=== PATIENT | male | born 2005 | race Caucasian/White ===

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

== ENCOUNTER 2023-05-30 00:02 | Emergency (ER) | payer OTHER, SELFPAY ==
--- NOTE | ~2023-05-30 | XR_ITS ---
EXAMINATION: XR knee LT 3V DATE: 05/30/2023 00:40 INDICATION: Left knee pain. TECHNIQUE: 4 views of left knee were obtained. COMPARISON: Left knee radiographs 01/14/2020 FINDINGS: Bone alignment is normal. No fracture. There is mild osteoarthritis of medial compartment. No knee joint effusion. IMPRESSION: 1. Mild left knee osteoarthritis. Reviewed, dictated and finalized at location A.
[2023-05-30 00:01] VITALS: BP 126/93; PULSE 89; RESP 17; TEMP 37.2; O2SAT 98
[2023-05-30 00:07] VITALS: PULSE 101; RESP 15; O2SAT 97
[2023-05-30 00:15] VITALS: PULSE 95; RESP 21; O2SAT 99
[2023-05-30 00:16] VITALS: BP 141/91; PULSE 92; RESP 18; O2SAT 99
[2023-05-30 00:30] VITALS: PULSE 94; RESP 17; O2SAT 98
[2023-05-30 00:45] VITALS: PULSE 82; RESP 28; O2SAT 99
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
== END 2023-05-30 01:14 | disposition home or self-care (01) ==
PROVIDERS: Emergency Provider Emergency Medicine
DX: S83.92XA Sprain of unspecified site of left knee, initial encounter (principal); X50.9XXA Other and unspecified overexertion or strenuous movements or postures, initial encounter
CPT/HCPCS: 73562; 99283